=== PATIENT | female | born 1995 | race African-American/Black ===

== ENCOUNTER 2016-10-25 17:27 | Emergency (ER) | payer BC, MEDICAID ==
[~2016-10-25] VITALS: Ht 162.6 cm; Wt 90.0 kg
[2016-10-25 17:28] VITALS: BP 118/56; PULSE 88; RESP 16; TEMP 98.4; O2SAT 100
[2016-10-25 22:06] VITALS: BP 117/69; PULSE 90; RESP 18; O2SAT 100
--- NOTE | 2016-10-25 22:07 | PD ---
HPI Chief Complaint: Related Problem Time Seen by Provider: 21:51 Travel History International Travel<30 days: No Contact w/Intl Traveler<30days: No Traveled to known affect area: No History of Present Illness HPI The patient is a 21-year-old Sabina female who presents emergency department for lower abdominal cramping and positive test. The patient states she is currently in college, says some lower intermittent abdominal cramping, and was evaluated in the [facility] earlier today. The patient states she had 3 separate urine tests which were positive. The patient is G0, last menstrual cycle was September 15, 2016. The patient denies any chronic medical problems, medications, or allergies. She denies any nausea, vomiting, upper abdominal pain, vaginal bleeding, or vaginal discharge. The patient denies any dysuria, frequency, or urgency. The patient's hometown is in [place], [place]. [facility] Past Medical History Medical History: Denies Significant Hx ?: LMP: 09/15/16 Past Surgical History Narrative Surgical Cholecystectomy Social History Alcohol Use: Yes (occasional) Tobacco Use: No Substance Use: No Allergies-Medications (Allergen,Severity, Reaction): Coded Allergies: No Known Allergies (Unverified , 10/25/16) Reported Meds & Prescriptions Reported Meds & Active Scripts Active No Active Prescriptions or Reported Medications Review of Systems Except as stated in HPI: all other systems reviewed are Neg General / Constitutional: No: Fever Cardiovascular: No: Chest Pain or Discomfort Respiratory: No: Shortness of Breath Gastrointestinal: No: Nausea, Vomiting, Abdominal Pain Genitourinary: Positive: Pelvic Pain (cramping), No: Urgency, Frequency, Dysuria, Discharge, Vaginal Bleeding Physical Exam Narrative GENERAL: Awake, alert, nontoxic-appearing 21-year-old female who appears her stated age is in no acute respiratory distress. SKIN: Warm and dry. HEAD: Atraumatic. Normocephalic. EYES: Pupils equal and round. No scleral icterus. No injection or drainage. ENT: No nasal bleeding or discharge. Mucous membranes pink and moist. NECK: Trachea midline. No JVD. GASTROINTESTINAL: Abdomen soft, non-tender, nondistended. No rebound tenderness. Well-healed surgical scar. Back: No CVA tenderness. MUSCULOSKELETAL: No obvious deformities. No clubbing. No cyanosis. No edema. NEUROLOGICAL: Awake and alert. No obvious cranial nerve deficits. Motor grossly within normal limits. Normal speech. PSYCHIATRIC: Appropriate mood and affect; insight and judgment normal. Data Data Last Documented VS Vital Signs Date Time Temp Pulse Resp B/P Pulse Ox O2 Delivery O2 Flow Rate FiO2 10/25/16 22:06 90 18 117/69 100 Room Air 10/25/16 17:28 98.4 Orders Beta Hcg (Quant/Titer) (10/25/16 21:59) Urinalysis - C+S If Indicated (10/25/16 21:59) Ed Urine Pregnancytest Poc (10/25/16 22:50) Us Pelvis (Ques Pr/Ect)W Trans (10/26/16 ) Labs Laboratory Tests Test 10/25/16 22:10 Urine Color YELLOW Urine Turbidity HAZY Urine pH 6.0 Urine Specific [place] 1.025 Urine Protein TRACE mg/dL Urine Glucose (UA) NEG mg/dL Urine Ketones 10 mg/dL Urine Occult Blood NEG Urine Nitrite NEG Urine Bilirubin NEG Urine Urobilinogen LESS THAN 2.0 MG/DL Urine Leukocyte Esterase MOD Urine RBC 4 /hpf Urine WBC 4 /hpf Urine Squamous Epithelial 14 /hpf Cells Urine Hyaline Casts 1 /lpf Urine Mucus FEW /lpf Microscopic Urinalysis Comment CULT NOT INDICATED Human Chorionic Gonadotropin, 4399 MIU/ML Quant [facility] Medical Decision Making Medical Screen Exam Complete: Yes Emergency Medical Condition: Yes Medical Record Reviewed: Yes Interpretation(s) Laboratory Tests Test 10/25/16 22:10 Urine Color YELLOW Urine Turbidity HAZY Urine pH 6.0 Urine Specific [place] 1.025 Urine Protein TRACE mg/dL Urine Glucose (UA) NEG mg/dL Urine Ketones 10 mg/dL Urine Occult Blood NEG Urine Nitrite NEG Urine Bilirubin NEG Urine Urobilinogen LESS THAN 2.0 MG/DL Urine Leukocyte Esterase MOD Urine RBC 4 /hpf Urine WBC 4 /hpf Urine Squamous Epithelial 14 /hpf Cells Urine Hyaline Casts 1 /lpf Urine Mucus FEW /lpf Microscopic Urinalysis Comment CULT NOT INDICATED Human Chorionic Gonadotropin, 4399 MIU/ML Quant Ultrasound reveals 9 mm gestational sac with a probable 2 mm pole. Both are too small for accurate dating for confirmation of viability. Findings are characteristic of her early gestation. Possible small subchorionic hemorrhage. Small amount of free fluid in the cul-de-sac. Differential Diagnosis Differential diagnosis includes , ectopic , threatened AB, UTI , PID, cervicitis. Narrative Course IV was established, labs were drawn and sent, the patient was monitored in the emergency department. Urine qualitative hCG was positive, therefore, quantitative beta hCG was sent to lab and ultrasound was ordered to evaluate for IUP versus ectopic . Ultrasound reveals an IUP, however, too small for accurate dating or confirmation of viability. The patient is advised to follow with BUSINESS LINE MANAGER, take a vitamin daily, and return if there is any bleeding or progressing symptoms. Diagnosis Primary Impression: Threatened Patient Instructions: General Instructions Additional Instructions: Take a vitamin daily. Follow-up with an credit administration officer. No smoking or drinking well . Return if symptoms worsen or progress or there is vaginal bleeding. Med/Other Pt SpecificInfo: No Change to Meds Scripts No Active Prescriptions or Reported Meds Disposition: 01 DISCHARGE HOME Condition: Stable Varinder Redd MD Oct 25, 2016 22:07
[2016-10-25 22:43] LABS: BLOOD, URINE NEG (NEG); COMMENT (UR) CULT NOT INDICATED; CULTURE IF INDICATED CULT NOT INDICATED; GLUCOSE,URINE NEG (NEG); HYALINE CAST, URINE 1 /lpf (RARE); KETONE, URINE 10 mg/dL (NEG); MUCUS URINE FEW /lpf (OCC); NITRITE,URINE NEG (NEG); SQUAMOUS EPITHELIAL CELL URINE 14 /hpf (0-5); URINE COLOR YELLOW (YELLW/STRAW)
[2016-10-25 23:12] LABS: BETA HCG QUANT 4399 MIU/ML (0-5)
--- NOTE | 2016-10-26 00:51 | RADRPT ---
EXAM DATE/TIME: 10/25/2016 23:54 [facility] COMPARISON: No previous studies available for comparison. INDICATIONS : Pelvic pain. LAB(S): Beta-hC,399 MEDICAL HISTORY : . SURGICAL HISTORY : Coronary artery stent. Cholecystectomy. ENCOUNTER: Initial ACUITY: 1 week PAIN SCORE: 6/10 LOCATION: Bilateral pelvis MEASUREMENTS: UTERUS: 7.0 x 6.2 x 4.9 cm ENDOMETRIAL STRIPE: 19 mm RIGHT OVARY: 2.2 x 1.7 x 1.5 cm LEFT OVARY: 2.3 x 2.5 x 1.9 cm FINDINGS: UTERUS: The myometrium has homogeneous echotexture without mass. The 6 x 7 x 9 mm gestational sac is identif ied as well as a yolk sac and a probable 2 mm pole. Crescentic area measuring 1.0 x 0.5 x 0.7 c m as well as a cystic area measuring 0.2 x 0.2 x 0.4 cm, both adjacent to the gestational sac may rep resent small subchorionic hemorrhages RIGHT OVARY: Ovary contains no mass or significant cystic lesion. LEFT OVARY: Ovary contains no mass or significant cystic lesion. MISCELLANEOUS: Small amount of free fluid. CONCLUSION: 1. 9 mm gestational sac with a probable 2 mm pole. Both are too small for accurate dating for c onfirmation of viability. Findings are characteristic of an early gestation. 2. Possible small subchorionic hemorrhage. 3. Small amount of free fluid in the cul-de-sac. Timo Castanon MD on October 26, 2016 at 0:46 Board Certified Radiologist. This report was verified electronically.
== END 2016-10-26 01:12 | disposition home or self-care (01) ==
LOC: NEPE 17:27
DX: O20.0 Threatened abortion (principal); Z3A.00 Weeks of gestation of pregnancy not specified
CPT/HCPCS: 76700; 76817; 81001; 84702; 84703

== ENCOUNTER 2016-11-24 15:50 | Emergency (ER) | payer BC, MEDICAID ==
[~2016-11-24] VITALS: Ht 162.6 cm; Wt 88.0 kg
[2016-11-24 15:59] VITALS: BP 113/62; PULSE 92; RESP 14; TEMP 98.1; O2SAT 98
--- NOTE | 2016-11-24 16:11 | PD ---
Physical Exam Date Seen by Provider: Nov 24, 2016 Time Seen by Provider: 16:08 Narrative 21 year old female presents to the emergency department for evaluation of possible STI, pelvic cramping. Patient reports being 10 weeks, 2 days . She states her school nurse told her she had an STI and should not wait for another appointment to be treated. She reports vaginal discharge. She also reports cold symptoms for 1 week. LMP was September 15, 2016. Patient awaiting bed placement. Data Data Last Documented VS Vital Signs Date Time Temp Pulse Resp B/P Pulse Ox O2 Delivery O2 Flow Rate FiO2 11/24/16 15:59 98.1 92 14 113/62 98 MDM Supervised Visit with CLAUDIA: No Scripts No Active Prescriptions or Reported Meds Carolyne Rasheed Nov 24, 2016 16:11
[2016-11-24] MEDS ORDERED: cefTRIAXone 250 MG VIAL IM ONE (17:45)
[2016-11-24] MEDS ORDERED: AZITHROMYCIN PWD FOR SUSP 1 GM PACKET PO ONE (17:45)
[2016-11-24] MEDS ORDERED: LIDOCAINE HCL 1% 50 ML VIAL IM ONE (17:45)
--- NOTE | 2016-11-24 17:45 | PD ---
HPI Chief Complaint: Related Problem Time Seen by Provider: 17:06 Travel History International Travel<30 days: No Contact w/Intl Traveler<30days: No Traveled to known affect area: No History of Present Illness HPI 21-year-old female approximately 10 weeks , LMP September 15, here for evaluation of possible STI. Patient is seen by [place] nurse practitioner [place] She tells me she was called yesterday by their clinic telling her that she has an STI and that it will be addressed on her next appointment. Patient became concerned and decided to present to the emergency department instead of waiting for her next appointment. She is having whitish vaginal discharge. Occasional cramping. She was seen here on 10/25/16 and had an ultrasound performed that showed a gestational sac with probable 2 mm pole. She denies vaginal bleeding. No urinary symptoms. PFSH Past Medical History Medical History: Denies Significant Hx Diminished Hearing: No Influenza Vaccination: Yes ?: LMP: 09/15/16 Past Surgical History Cholecystectomy: Yes Social History Alcohol Use: Yes (none since ) Tobacco Use: No Substance Use: No Allergies-Medications (Allergen,Severity, Reaction): Coded Allergies: No Known Allergies (Unverified , 11/24/16) Reported Meds & Prescriptions Reported Meds & Active Scripts Active No Active Prescriptions or Reported Medications Review of Systems Except as stated in HPI: all other systems reviewed are Neg Physical Exam Narrative GENERAL: Well-developed, well-nourished, comfortable, no acute distress. SKIN: Focused skin assessment warm/dry. HEAD: Atraumatic. Normocephalic. EYES: Pupils equal and round. No scleral icterus. No injection or drainage. ENT: Mucous membranes pink and moist. CARDIOVASCULAR: Regular rate and rhythm. No murmur appreciated. RESPIRATORY: No accessory muscle use. Clear to auscultation. Breath sounds equal bilaterally. GASTROINTESTINAL: Abdomen soft, non-tender, nondistended. LOCOMOTIVE OPERATOR HELPER: Exam performed in the presence of female nurse. Normal external genitalia. Moderate whitish/[id number] vaginal discharge. No CMT. MUSCULOSKELETAL: No obvious deformities. No clubbing. No cyanosis. No edema. NEUROLOGICAL: Awake and alert. No obvious cranial nerve deficits. Motor grossly within normal limits. Normal speech. PSYCHIATRIC: Appropriate mood and affect; insight and judgment normal. Data Data Last Documented VS Vital Signs Date Time Temp Pulse Resp B/P Pulse Ox O2 Delivery O2 Flow Rate FiO2 11/24/16 15:59 98.1 92 14 113/62 98 Orders Gc And Chlamydia Pcr (11/24/16 17:23) Wet Prep Profile (11/24/16 17:23) Ua Includes Microscopic (11/24/16 17:23) Azithromycin Powd Pack (Zithromax Powd P (11/24/16 17:45) Ceftriaxone Inj (Rocephin Inj) (11/24/16 17:45) Lidocaine 1% Inj (50 Ml) (Xylocaine 1% I (11/24/16 17:45) Labs Laboratory Tests Test 11/24/16 17:40 Urine Color YELLOW Urine Turbidity CLEAR Urine pH 8.0 Urine Specific [place] 1.028 Urine Protein TRACE mg/dL Urine Glucose (UA) NEG mg/dL Urine Ketones NEG mg/dL Urine Occult Blood NEG Urine Nitrite NEG Urine Bilirubin NEG Urine Urobilinogen LESS THAN 2.0 MG/DL Urine Leukocyte Esterase NEG Urine WBC 2 /hpf Urine Squamous Epithelial 1 /hpf Cells Urine Amorphous Sediment RARE Clue Cells (Wet Prep) NONE SEEN Vaginal Trichomonas (Wet Prep) NONE SEEN Vaginal Yeast (Wet Prep) NONE SEEN MDM Medical Decision Making Medical Screen Exam Complete: Yes Emergency Medical Condition: Yes Differential Diagnosis Gonorrhea, chlamydia, PID unlikely, vaginal candidiasis, Narrative Course Vital signs reviewed. Bedside ultrasound performed by me shows an IUP with a heart rate of 162 bpm Case discussed with on-call OB hospitalist Dr. Romano who recommends treating the patient empirically with Rocephin and azithromycin and having her follow-up as an outpatient. UA is within normal limits, not suggestive UTI. Wet prep is negative for yeast, negative for clue cells, negative for Trichomonas. The patient was made aware of all findings. She is stable for discharge home with outpatient follow-up with her [facility] this week. She was informed on when to return to the emergency department. She verbalizes understanding and agreement with plan. Procedures Procedure Narrative Bedside transabdominal ultrasound: Using the curvilinear ultrasound probe, a bedside transabdominal ultrasound was performed and shows an IUP with a heart rate of 162 bpm. Diagnosis Primary Impression: Vaginal discharge during Qualified Code: O26.891 - Vaginal discharge during , first trimester Referrals: Shirt Hemmer 3 days Additional Instructions: Follow-up with your [facility] this week. Return to the emergency department for worsening symptoms or any other concerns. Scripts No Active Prescriptions or Reported Meds Disposition: 01 DISCHARGE HOME Condition: Jose Erickson MD Nov 24, 2016 17:45
[2016-11-24 17:59] LABS: BLOOD, URINE NEG (NEG); GLUCOSE,URINE NEG (NEG); KETONE, URINE NEG (NEG); NITRITE,URINE NEG (NEG); SQUAMOUS EPITHELIAL CELL URINE 1 /hpf (0-5); URINE COLOR YELLOW (YELLW/STRAW)
[2016-11-24 20:22] LABS: CHLAMYDIA PCR DETECTED (NOT DETECT); NEISSERIA PCR NOT DETECTED (NOT DETECT)
== END 2016-11-24 19:08 | disposition home or self-care (01) ==
LOC: NEPD 15:50
DX: O26.891 Other specified pregnancy related conditions, first trimester (principal); N89.8 Other specified noninflammatory disorders of vagina
CPT/HCPCS: 81001; 87210; 87491; 87591; 96372; 99284; J0696

== ENCOUNTER 2017-11-25 11:19 | Emergency (ER) | payer BC ==
[~2017-11-25] VITALS: Ht 162.6 cm; Wt 90.0 kg
[2017-11-25 11:39] VITALS: BP 132/59; PULSE 94; RESP 18; TEMP 98.1; O2SAT 98
--- NOTE | 2017-11-25 12:48 | PD ---
HPI Chief Complaint: Cold / Flu Symptoms Time Seen by Provider: 12:30 Travel History International Travel<30 days: No Contact w/Intl Traveler<30days: No Traveled to known affect area: No History of Present Illness HPI The patient was seen and examined in the presence of the nurse. This patient complains of runny nose and congestion and cough. No fevers. Denies any chronic health issues. Duration 2 weeks. Symptom severity is mild to moderate PFSH Past Medical History Diminished Hearing: No ?: Not LMP: OCTOBER 2017 Past Surgical History Cholecystectomy: Yes Social History Alcohol Use: Yes Tobacco Use: No Substance Use: No Allergies-Medications (Allergen,Severity, Reaction): Coded Allergies: No Known Allergies (Unverified , 11/24/16) Reported Meds & Prescriptions Reported Meds & Active Scripts Active No Active Prescriptions or Reported Medications Review of Systems General / Constitutional: No: Fever Cardiovascular: No: Chest Pain or Discomfort Respiratory: Positive: Cough Gastrointestinal: No: Vomiting Physical Exam Narrative GENERAL: Well-nourished, well-developed patient. SKIN: Focused skin assessment warm/dry. HEAD: Normocephalic. Nares shows clear rhinorrhea, throat clear EYES: No scleral icterus. No injection or drainage. NECK: Supple, trachea midline. No JVD or lymphadenopathy. CARDIOVASCULAR: Regular rate and rhythm without murmurs, gallops, or rubs. RESPIRATORY: Breath sounds equal bilaterally. No accessory muscle use. GASTROINTESTINAL: Abdomen soft, non-tender, nondistended. MUSCULOSKELETAL: No cyanosis, or edema. BACK: Nontender without obvious deformity. No CVA tenderness. Data Data Last Documented VS Vital Signs Date Time Temp Pulse Resp B/P (MAP) Pulse Ox O2 Delivery O2 Flow Rate FiO2 11/25/17 11:39 98.1 94 18 132/59 (83) 98 MDM Medical Decision Making Medical Screen Exam Complete: Yes Emergency Medical Condition: Yes Medical Record Reviewed: Yes Differential Diagnosis Flu syndrome, bronchitis, URI Narrative Course I have reviewed the patient's electronic medical record. Presentation is consistent with acute viral respiratory illness. No indication for antibiotics or emergent testing Diagnosis Primary Impression: Acute viral syndrome Additional Instructions: The patient was advised to follow up with their physician and return if they worsen. Med/Other Pt SpecificInfo: Other Scripts No Active Prescriptions or Reported Meds Disposition: 01 DISCHARGE HOME Condition: Stable Acacia Dickeyew J. MD Nov 25, 2017 12:48
== END 2017-11-25 13:11 | disposition home or self-care (01) ==
LOC: NEPD 11:19
DX: B34.9 Viral infection, unspecified (principal)
CPT/HCPCS: 99282